=== PATIENT | female | born 1955 | race Caucasian/White ===

== ENCOUNTER 2021-07-01 07:55 | Emergency (ER) | payer OTHER ==
--- NOTE | 2021-07-01 08:09 | NUR ---
CALLED FOR TRIAGE, NO ANSWER
--- NOTE | 2021-07-01 08:22 | NUR ---
CALLED FOR TRIAGE, NO ANSWER
--- NOTE | 2021-07-01 08:42 | NUR ---
CALLED FOR TRIAGE, NO ANSWER
== END 2021-07-01 08:44 | disposition left against medical advice (07) ==
LOC: ED 08:35
DX: M79.605 Pain in left leg (principal); Z53.21 Procedure and treatment not carried out due to patient leaving prior to being seen by health care provider